=== PATIENT | female | born 1945 | race Caucasian/White ===

== ENCOUNTER 2017-12-09 06:35 | Outpatient (CLI) | payer OTHER ==
[~2017-12-09] VITALS: Ht 162.6 cm; Wt 104.3 kg
--- NOTE | ~2017-12-09 | P ---
[facility] [place] [address] PROCEDURE REPORT Name: ADE HOLLANDAREKimberlee MARSHALL Room #: DEP LAURA Prado#: [id number] Admission: 12/09/17 Attend Phys: Roberto Bernal MD Discharge: 12/10/17 Date of : 45 Report #: [id number] THIS REPORT FOR: //name// CC: Pearl Pierson DATE OF SERVICE: 12/09/2017 PREOPERATIVE DIAGNOSIS: Atrial fibrillation. POSTOPERATIVE DIAGNOSIS: Atrial fibrillation. PROCEDURES PERFORMED: 1. AFib ablation, CPT code 35399. 2. 3D mapping EP, CPT code 79193. 3. Intracardiac echo, CPT code 76245. 4. Pacemaker reprogramming, CPT code 07957 x 2. HISTORY: The patient is a 72-year-old with history of AFib, who has failed antiarrhythmic drug therapy and is here for ablation. She also has history of sick sinus syndrome, status post Biotronik pacemaker implantation. ANESTHESIA: The patient underwent general anesthesia with no anesthesia related complications. DESCRIPTION OF PROCEDURE: The patient underwent informed consent. We discussed the details of the procedure including the risk, which include, but not limited to bleeding, vascular damage, cardiac perforation as well as stroke or PR. She understood these risks and is willing to proceed. As such, the patient was brought to the EP laboratory in a fasting and sedated state, prepped and draped in a sterile fashion. Prior to the procedure, her pacemaker was reprogrammed to the DDD mode. Next, I obtained access to the right femoral vein x 3 and placed an 8-[place], 9-[place] and 7-[place] short sheath using the modified Seldinger technique. Next, under fluoroscopy, I placed a decapolar catheter easily in the coronary sinus and an ice catheter into the right atrium. Using intracardiac ultrasound, I created a detailed 3D geometry of the left atrium using [employer]. There was evidence of a large left atrial appendage. There was a left common ostium with the superior and inferior branch and a right superior vessel and a very small right inferior vessel, which was difficult to enter. Next, the patient was systemically heparinized and using an SL1 sheath and a [place] needle, a transseptal was performed easily using a [employer] Intl Escobar ablation catheter. A detailed 3D geometry of the left atrium was created with voltage mapping. This reemphasized the fact that there was a common ostium and again, the right inferior pulmonary vein was very small and I could not get the Lasso into this vessel. Next, I exchanged the SL1 sheath for the cryo sheath [address] [id number] PROCEDURE REPORT Name: DODIE HOLLAND Room #: DEP LAURA Prado#: [id number] Admission: 12/09/17 Attend Phys: Roberto Bernal MD Discharge: 12/10/17 Date of : 45 Report #: [id number] and I started isolating the veins. The left common ostium underwent 4 freezes. I performed two 4-minute freezes in the left superior branch. This did not result in isolation of the ostium. I then turned and placed my Achieve into the lower branch of the common ostium and then, the vein isolated within 55 seconds. I performed a 4-minute freeze and a 3-minute freeze in this inferior branch and post-ablation, it was clear that we had isolated both the superior and inferior branches of the common ostium. I then turned my attention to the right superior pulmonary vein. I performed a 4-minute freeze, which did not result in isolation, but did result in marked slowing of conduction in this vessel. I then performed a second freeze and the vein isolated within 21 seconds and we stayed on for a period about 100 seconds. There was some phrenic nerve weakening during this freeze; therefore, we came off early, but this vein was clearly isolated. I then turned my attention to the right inferior pulmonary vein. I performed two 3-minute freezes in this vessel. I then tried to re-interrogate this initially with just the Achieve catheter and could not get all the poles into this vessel and then tried again with the Lasso catheter and this would not fit either. I therefore performed 1 additional freeze as there was still some small electrograms noted here. This vein isolated within about 20 seconds and therefore, I only froze for 100 seconds. Post-ablation all veins were re-interrogated and there was entrance and exit block of all the veins. Post-ablation, the patient was in sinus rhythm and the pacemaker was re-interrogated and found to be functioning normally. The device was reprogrammed to its original settings. Prior to the ablation, we had programmed it to a DDD mode. Post-ablation, we reprogrammed it to a DDD-CLS mode. Post-ablation, the phrenic nerve had returned to 100% strength. CONCLUSIONS: Successful AFib ablation with isolation of all pulmonary veins. <ELECTRONICALLY SIGNED> By: Roberto Bernal MD 12/22/17 1609 1221 32 Roberto Bernal MD /nt
[2017-12-09 07:06] LABS: ABSOLUTE NEUTROPHILS 6.7 thou/uL (1.4-8.2); BASOPHILS 1.1 % (0.0-2.0); EOSINOPHILS 1.1 % (0.0-3.0); HEMATOCRIT 43.8 % (37.0-47.0); HEMOGLOBIN 14.6 gm/dL (12.0-15.0); LYMPHOCYTES 16.1 % (24.0-44.0); MCH 28.6 pg (26.0-34.0); MCHC 33.5 g/dL (28.0-37.0); MCV 85.6 fL (80.0-100.0); MONOCYTES 8.1 % (1.0-8.0); PLATELET COUNT 227 thou/uL (150-400); POLYS 73.6 % (36.0-66.0); RBC 5.11 mil/uL (4.20-5.00); RDW 15.9 % (10.5-14.5); WBC 9.1 thou/uL (4.0-11.0)
[2017-12-09 07:20] LABS: APTT 22.9 Seconds (24.5-32.8); PROTIME 10.6 Seconds (9.3-11.4)
[2017-12-09] MEDS ORDERED: PACERONE 200 M200 M1 PO (07:22)
[2017-12-09 07:23] LABS: CREATININE 1.2 mg/dL (0.6-1.0); POTASSIUM 3.4 mmol/L (3.5-5.1)
[2017-12-09] MEDS ORDERED: DIGOXIN125 MCG PO (07:23)
[2017-12-09] MEDS ORDERED: ATORVASTATIN CA40 MG PO (07:23)
[2017-12-09] MEDS ORDERED: CARDIZEM CD240 MG PO (07:24)
[2017-12-09] MEDS ORDERED: XALATAN2.5 ML OPHTHALMIC (07:25)
[2017-12-09] MEDS ORDERED: LANTUS100 UNIT/M SUBQ (07:25)
[2017-12-09] MEDS ORDERED: SYNTHROID75 MCG PO (07:26)
[2017-12-09] MEDS ORDERED: COZAAR 25 MG TA25 M1 PO (07:27)
[2017-12-09] MEDS ORDERED: HYDROCHLOROTHIA25 M2 PO (07:27)
[2017-12-09] MEDS ORDERED: GLUCOPHAGE XR500 MG PO (07:28)
[2017-12-09] MEDS ORDERED: WELCHOL 625 MG625 MG PO (07:28)
[2017-12-09] MEDS ORDERED: XARELTO15 MG PO (07:29)
[2017-12-09 07:30] LABS: ALBUMIN 3.7 g/dL (3.4-5.0); TOTAL BILIRUBIN 0.8 mg/dL (<0.1-1.0); TOTAL PROTEIN 7.9 g/dL (6.4-8.2)
[2017-12-09 07:31] VITALS: BP 103/79
[2017-12-09 20:12] VITALS: BP 151/78
[2017-12-09 23:38] VITALS: BP 158/90
[2017-12-10 00:44] VITALS: BP 152/84
[2017-12-10 04:45] VITALS: BP 153/84
[2017-12-10 08:30] VITALS: BP 127/69
[2017-12-10 10:00] VITALS: BP 137/69
== END 2017-12-10 10:50 | disposition home or self-care (01) ==
LOC: CATH 06:35 → 2N 15:24 → ENTRNSPT 12-10 10:36 → EDTRNSPTSTS 12-10 10:38 → CATH 12-10 10:50
PROVIDERS: Internal Medicine Cardiovascular Disease
DX: I48.91 Unspecified atrial fibrillation (principal); I10 Essential (primary) hypertension; E11.9 Type 2 diabetes mellitus without complications; E78.5 Hyperlipidemia, unspecified; E66.09 Other obesity due to excess calories; Z82.49 Family history of ischemic heart disease and other diseases of the circulatory system; Z79.01 Long term (current) use of anticoagulants; Z96.653 Presence of artificial knee joint, bilateral; Z79.899 Other long term (current) drug therapy; Z98.890 Other specified postprocedural states; Z87.891 Personal history of nicotine dependence; Z95.0 Presence of cardiac pacemaker; Z90.49 Acquired absence of other specified parts of digestive tract
CPT/HCPCS: 10081; 62110; 62900; 65020; 65040; 65043; 70005